=== PATIENT | female | born 1975 | race Caucasian/White ===

== ENCOUNTER 2019-06-24 10:42 | Day surgery (SDC) | payer MEDICARE, OTHER ==
[2019-06-19 15:58] VITALS: BMI 25.4
[~2019-06-24 10:42] MED LIST: DEXAMETHASONE SOD PHOSPHATE 10 MG/ML 1 ML VIAL IV ONE; HYDROmorphone 0.5 MG/0.5 ML SYRINGE IVP PRN; LACTATED RINGERS 1,000 ML IV SCH; MIDAZOLAM 2 MG/2 ML VIAL IV PRN; ONDANSETRON 4 MG/2 ML VIAL IVP ONE; Pre Op ABX Message 1 EACH MISC MISCELLANE ONE; SCOPOLAMINE 1.5MG/72HR PATCH TRANSDERM ONE
[2019-06-24 11:16] VITALS: TEMP 97.3
[2019-06-24] MEDS ORDERED: MIDAZOLAM 2 MG/2 ML VIAL ONE (12:08)
[2019-06-24] MEDS ORDERED: KETAMINE 10 MG/ML 20 ML VIAL ONE (12:08)
[2019-06-24] MEDS ORDERED: PROPOFOL 10 MG/ML 20 ML VIAL IV ONE (12:08)
[2019-06-24] MEDS ORDERED: fentaNYL (PF) 50 MCG/ML 2 ML AMP ONE (12:08)
[2019-06-24] MEDS ORDERED: LIDOCAINE 1% INJ 10MG/ML (20 ML MDV) ONE (12:08)
[2019-06-24] MEDS ORDERED: LIDOCAINE 2% INJ 20 MG/ML SQ ONE (12:12)
[2019-06-24] MEDS ORDERED: BUPIVACAINE (PF) 0.5% 30 ML VIAL SQ ONE (12:12)
[2019-06-24 13:08] VITALS: BP 124/81; PULSE 75; RESP 20
--- NOTE | 2019-06-24 22:12 | OP ---
OPERATIVE REPORT PREOPERATIVE DIAGNOSIS: Right carpal tunnel and right cubital tunnel. POSTOPERATIVE DIAGNOSIS: Right carpal tunnel and right cubital tunnel. PROCEDURES: 1. Right carpal tunnel release. 2. Right cubital tunnel release. DESCRIPTION OF PROCEDURE - OPEN CARPAL TUNNEL RELEASE: The patient was taken to the Operative Suite where a sedation was administered by the Department of Anesthesia. I then performed a local injection along the line of the incision with a combination of Marcaine and Xylocaine both without epinephrine. The hand was then prepped and draped in the usual manner. The arm was elevated, exsanguinated and the cuff was inflated to 250 mm of mercury. A longitudinal incision was made along the ring finger ray distal to the wrist crease. Dissection was taken through the skin and subcutaneous tissue, initially sharp through the skin and then blunt through the subcutaneous tissue to ensure protection of any potential terminal transverse branches of the palmar cutaneous nerve. The palmar fascia was then incised under direct vision longitudinally exposing the transverse carpal ligament. The transverse carpal ligament also was incised under direct vision. The dissection was then continued proximally beneath the skin under direct vision to release the distal forearm fascia. The median nerve was then reflected free of tenosynovium to ensure no adhesions. The tourniquet was then released. The wound was then irrigated and the skin was closed with a running 5-0 nylon suture. A soft bulky dressing was applied including a volar plaster splint holding the wrist in a neutral slightly extended position. The patient was then taken to the Recovery Room in satisfactory condition. DESCRIPTION OF PROCEDURE - ULNAR NERVE DECOMPRESSION ELBOW, CUBITAL TUNNEL: The patient is taken to the operative suite where an anesthetic was administered by the Department of Anesthesia with good result. The arm was then prepped and draped in the usual manner. A longitudinal incision was made, somewhat posteriorly near the olecranon. Dissection was then taken through the skin and subcutaneous tissue with blunt dissection then performed to protect any posterior ranches of the medial antebrachial cutaneous nerve of the arm. The ulnar nerve was then visualized in the retrocondylar groove and was traced in both the proximal distal direction. Care was taken to ensure all potential site of nerve entrapment were decompressed including the arcade of [place], the medial intermuscular septums, the retrocondylar groove, decubital tunnel and the flexor aponeurosis distally. Care was taken to avoid dissecting the ulnar nerve from it?s vascular supply. At the completion of the procedure, the elbow was placed in flexion and there is no signs of subluxation. The wound was then irrigated and the skin was closed with running 5-0 nylon suture. Marcaine was injected for long acting anesthetic. A soft bulky dressing was applied and the patient taken to the recovery room in satisfactory condition. MINNIE / SPENCER: [id number] /
== END 2019-06-24 12:17 | disposition home or self-care (01) ==
LOC: OR 10:42
PROVIDERS: ATTEND Orthopaedic Surgery Hand Surgery
DX: G56.01 Carpal tunnel syndrome, right upper limb (principal); G56.21 Lesion of ulnar nerve, right upper limb; J44.9 Chronic obstructive pulmonary disease, unspecified; Z90.710 Acquired absence of both cervix and uterus; Z90.89 Acquired absence of other organs; Z98.1 Arthrodesis status; Z87.891 Personal history of nicotine dependence; Z79.899 Other long term (current) drug therapy
CPT/HCPCS: 81025; 64721; 64718; J2001 ×2; J2250; J1100; J2405; J3010; J2704